=== PATIENT | female | born 1985 | race Caucasian/White ===

== ENCOUNTER 2016-08-10 | Outpatient (CLI) | payer BC, OTHER | END 2016-08-10 15:26 | disposition critical access hospital (66) | CPT/HCPCS: A0425; A0429 ==

== ENCOUNTER 2016-08-10 15:41 | Emergency (ER) | payer BC, OTHER | END 2016-08-10 17:35 | disposition home or self-care (01) | DX: I47.1 Supraventricular tachycardia (principal); F17.200 Nicotine dependence, unspecified, uncomplicated ==

== ENCOUNTER 2016-08-18 13:53 | Outpatient (CLI) | payer BC, OTHER | END 2016-08-18 13:54 | disposition home or self-care (01) | DX: M54.2 Cervicalgia (principal) ==

== ENCOUNTER 2016-09-01 10:45 | Outpatient (CLI) | payer BC, OTHER | END 2016-09-01 10:46 | disposition home or self-care (01) | DX: T21.29XD Burn of second degree of other site of trunk, subsequent encounter (principal) ==

== ENCOUNTER 2016-09-30 09:05 | Outpatient (CLI) | payer OTHER | END 2016-09-30 09:06 | disposition home or self-care (01) | DX: R22.1 Localized swelling, mass and lump, neck (principal) ==

== ENCOUNTER 2017-05-01 07:05 | Outpatient (CLI) | payer OTHER | END 2017-05-01 07:06 | disposition home or self-care (01) | LOC: LAB.R 07:05 | PROVIDERS: ATTEND Family Medicine | DX: N39.0 Urinary tract infection, site not specified (principal) | CPT/HCPCS: 87086 ==

== ENCOUNTER 2017-06-25 16:00 | Outpatient (CLI) | payer OTHER | END 2017-06-25 16:01 | LOC: LAB.WCP 16:00 | PROVIDERS: ATTEND Family Medicine | DX: N39.0 Urinary tract infection, site not specified (principal); R10.2 Pelvic and perineal pain | CPT/HCPCS: 87086; 87491; 87591 ==

== ENCOUNTER 2017-06-25 21:02 | Outpatient (CLI) | payer OTHER ==
--- NOTE | 2017-06-25 22:57 | Ultrasound Preliminary Report ---
Exam: US PELVIC W/TRANSVAGINAL IMPRESSION: 1. Probable physiologic 2.7 cm right ovarian cyst. No adnexal lesions or evidence of torsion. 2. Normal endometrium and uterus. [facility] The call report notification system was initiated by Dr. Aye Durand at 22:51 hrs on 06/25/17. The above findings were discussed with Kle by Dr. Aye Durand at 22:55 hrs on 06/25/17. SITE ID: [id number]
--- NOTE | 2017-06-25 23:10 | Ultrasound Report ---
EXAM: PELVIC ULTRASOUND EXAM DATE: 06/25/2017 10:36 PM. CLINICAL HISTORY: Pelvic pain. COMPARISON: 12/25/2014. TECHNIQUE: Realtime transabdominal pelvic scan performed to identify the uterus and adnexa and as an overview of other pelvic structures, followed by transvaginal scan to provide greater detail of the u terus and adnexa, with static image documentation. FINDINGS: Uterus: 8.4 x 3.6 x 4.8 cm, volume 75.2 cc. Anteverted position. Normal overall size and echotexture. Masses: None. Endometrium: 12 mm. Normal. Cervix: Unremarkable. Right Ovary: 4.1 x 2.8 x 3.9 cm, volume 23 cc. Normal echotexture and blood flow. 2.7 x 1.7 x 2.1 cm complex thin-walled right ovarian cyst. No mural nodules or thickened septations are noted. Left Ovary: 3.4 x 2.4 x 2.7 cm, volume 11.1 cc. Normal echotexture and blood flow. Free Fluid: None. Other: None. IMPRESSION: 1. Probable physiologic 2.7 cm right ovarian cyst. No adnexal lesions or evidence of torsion. 2. Normal endometrium and uterus. [facility] The call report notification system was initiated by Dr. Aye Durand at 22:51 hrs on 06/25/17. The above findings were discussed with [place] by Dr. Aye Durand at 22:55 hrs on 06/25/17. Referring Provider Line: [phone] SITE ID: [id number]
== END 2017-06-25 21:03 | disposition home or self-care (01) ==
LOC: DI 21:02
PROVIDERS: ATTEND Family Medicine
DX: N83.201 Unspecified ovarian cyst, right side (principal); N39.0 Urinary tract infection, site not specified; R10.2 Pelvic and perineal pain
CPT/HCPCS: 76830; 76856; 87086; 87491; 87591

== ENCOUNTER 2020-05-29 14:47 | Outpatient (CLI) | payer BC, OTHER ==
[2020-05-29 12:19] LABS: BASOPHILS % (AUTO) 0.5 %; EOSINOPHILS % (AUTO) 0.2 %; HGB - HEMOGLOBIN 15.4 g/dL (12.0-16.0); LYMPHOCYTES # (AUTO) 1.1 10^3/uL (1.5-3.5); LYMPHOCYTES % (AUTO) 12.9 %; MEAN CORPUSCULAR HEMOGLOBIN 32.1 pg (27.0-31.0); MEAN CORPUSCULAR HGB CONC 32.4 g/dL (32.0-36.0); MEAN CORPUSCULAR VOLUME 99.2 fL (81.0-99.0); MONOCYTES # (AUTO) 0.5 10^3/uL (0.0-1.0); MONOCYTES % (AUTO) 5.8 %; NEUTROPHILS # (AUTO) 6.8 10^3/uL (1.5-6.6); NEUTROPHILS % (AUTO) 80.1 %; PLT - PLATELET COUNT 303 10^3/uL (130-450); RED CELL DISTRIBUTION WIDTH 12.8 % (12.0-15.0); WHITE BLOOD COUNT 8.4 x10^3/uL (4.8-10.8)
[2020-05-29 12:30] LABS: ALBUMIN 4.1 g/dL (3.2-5.5); BILIRUBIN,TOTAL 0.9 mg/dL (0.2-1.0); CALCIUM 9.5 mg/dL (8.5-10.3); CREATININE 0.7 mg/dL (0.4-1.0); TOTAL PROTEIN 8.1 g/dL (6.7-8.2)
--- NOTE | 2020-05-29 14:49 | XRAY Report ---
PROCEDURE: Chest 2 View X-Ray INDICATIONS: CHEST PAIN TECHNIQUE: 2 view(s) of the chest. COMPARISON: None. FINDINGS: Surgical changes and devices: None. Lungs and pleura: No pleural effusions or pneumothorax. Lungs are clear. Mediastinum: Mediastinal contours are normal. Heart size is normal. Bones and chest wall: No suspicious bony abnormalities. Soft tissues appear unremarkable. IMPRESSION: No acute cardiopulmonary disease process. Reviewed by: Luz Solomon MD, PhD on 05/29/2020 2:48 PM PST Approved by: Luz Solomon MD, PhD on 05/29/2020 2:48 PM PST Station ID: [id number]
== END 2020-05-29 23:59 | disposition home or self-care (01) ==
LOC: DI.WCP 14:47
PROVIDERS: ATTEND Family Medicine
DX: R07.9 Chest pain, unspecified (principal); Z20.828 Contact with and (suspected) exposure to other viral communicable diseases
CPT/HCPCS: 36415; 71046; 80053; 83735; 84443; 84484; 85025; 85379